=== PATIENT | male | born 1955 | race Caucasian/White ===

== ENCOUNTER 2017-08-11 11:18 | Inpatient (IN) | payer OTHER, MEDICAID ==
[~2017-08-11] VITALS: Ht 172.7 cm; Wt 71.0 kg
[2017-08-11 11:35] VITALS: BP 119/84
--- NOTE | 2017-08-11 11:43 | NUR ---
PT W/C ASSISTED TO BED 1.
--- NOTE | 2017-08-11 11:59 | NUR ---
DR MAHER IN ROOM FOR EXAM
--- NOTE | 2017-08-11 12:40 | NUR ---
PT LYING ON GURNEY NOTED WITH SHORTNESS OF BREATH USING ACESSSORY MUSCLES AT THIS TIME. HEAD TO TOE ASSESMENT DONE LUNG SOUNDS DIMINISHED BASE OF BILATERAL LUNGS DENIES CHEST PAIN. CAP REFILL POSITIVE SOME TENDERNESSS NOTED WITH PALPATION OF ABDOMEN. LAST BM YESTERDAY VOIDING WITHOUT ISSUE,TYSON 4+ PEDALPITTING EDEMA. PEDAL PULSES UNOBTAINABLE. PT IS ALERT AND ORIENTED. IV SITE OBTAINED PT ON 12 LEAD MONITOR WITH STEADY HEART RATE. 02 STATING AT 93%. LAB ORDERS RECIEVED AND CARRIED OUT. PER PT, WAS RECENTLY DISACHRGED FROM [facility] 2 DAYS AGO, DID NOT TAKE HIS LASIX YESTERADY, BUT HAS TAKEN TOTAL OF 80MG TODAY. URINATING WELL VIA URINAL, URINE SENT TO LAB FOR FURTHER STUDIES.
[2017-08-11 12:45] LABS: BASOPHILS # (AUTO) 0.2 K/uL (0.00-0.22); EOSINOPHILS # (AUTO) 0.3 K/uL (0-0.4); EOSINOPHILS % (AUTO) 3.1 % (0.0-4.0); HEMATOCRIT 44.8 % (36-52); HEMOGLOBIN 14.1 g/dL (12.0-18.0); LYMPHOCYTES # (AUTO) 1.8 K/uL (2.0-11.5); LYMPHOCYTES % (AUTO) 19.3 % (20.5-51.1); MEAN CORPUSCULAR HEMOGLOBIN 28 pg (27-31); MEAN CORPUSCULAR HGB CONC 32 g/dL (33-37); MEAN CORPUSCULAR VOLUME 90 fL (80-94); MONOCYTES # (AUTO) 0.6 K/uL (0.8-1.0); MONOCYTES % (AUTO) 6.2 % (1.7-9.3); NEUTROPHILS # (AUTO) 6.2 K/uL (1.8-7.7); NEUTROPHILS % (AUTO) 69.4 % (42.2-75.2); PLATELET COUNT (AUTO) 568 K/uL (140-450); RED BLOOD CELL COUNT(AUTO) 4.96 MIL/uL (4.20-6.10); RED CELL DISTRIBUTION WIDTH 20.1 % (11.6-13.7); WHITE BLOOD COUNT (AUTO) 9.1 K/uL (4.8-10.8)
[2017-08-11 12:54] LABS: APPEARANCE,URINE CLEAR (CLEAR); BILIRUBIN,URINE NEGATIVE (NEGATIVE); BLOOD, URINE NEGATIVE (NEGATIVE); COLOR,URINE YELLOW (YELLOW); LEUKOCYTE ESTERASE ,URINE NEGATIVE (NEGATIVE); NITRITE, URINE NEGATIVE (NEGATIVE); PH,URINE 6.5 (5.0-9.0); UGLUCOSE NEGATIVE (NEGATIVE)
[2017-08-11 12:56] LABS: BARBITURATE, URINE NEG. ng/ml (NEG <=200); BENZODIAZEPINE, URINE NEG. ng/mL (NEG <=200); CANNABINOID, URINE NEG. ng/mL (NEG <=50); COCAINE, URINE NEG. ng/mL (NEG <=300); OPIATE, URINE NEG. ng/mL (NEG <=2000); PHENCYCLIDINE SCREEN,URINE NEG. ng/mL (NEG <=25)
[2017-08-11 13:13] LABS: ANION GAP 12.1 (8-16); CARBON DIOXIDE 28.7 mmol/L (21-32); CREATININE 1.1 mg/dL (0.7-1.3); POTASSIUM 4.8 mmol/L (3.5-5.1); TOTAL BILIRUBIN 0.8 mg/dL (0.0-1.0)
--- NOTE | 2017-08-11 13:25 | NUR ---
TROPONIN 0.105, DR MAHER INFORMED
[2017-08-11] MEDS ORDERED: ONDANSETRON 4 MG/2 ML VIAL IVP PRN (13:30)
[2017-08-11] MEDS ORDERED: ACETAMINOPHEN 325 MG TAB PO PRN (13:30)
[2017-08-11] MEDS ORDERED: ALBUTEROL SULFATE/IPRATROPIU 3 ML SOL IH PRN (13:30)
[2017-08-11] MEDS ORDERED: NITROGLYCERIN 0.4 MG TAB SL PRN (13:35)
[2017-08-11 14:15] LABS: PROTHROMBIN TIME 13.4 secs (10.8-13.4)
[2017-08-11] MEDS ORDERED: ACET-2863 PO (14:21)
[2017-08-11] MEDS ORDERED: CARV3.12 PO (14:21)
[2017-08-11] MEDS ORDERED: FURO40TA9 PO (14:21)
[2017-08-11] MEDS ORDERED: SPIR25TA13 PO (14:21)
[2017-08-11] MEDS ORDERED: ASPI-1173 PO (14:21)
[2017-08-11] MEDS ORDERED: POTA10CE85 PO (14:22)
[2017-08-11 14:26] LABS: CHOL/HDL RATIO 3.5 (1-4.5); FREE T4 (FREE THYROXINE) 0.8 ng/dL (0.76-1.46); THYROID STIMULATING HORMONE 8.71 uIU/mL (0.34-3.74)
--- NOTE | 2017-08-11 14:27 | NUR ---
ORDERS FOR ADMISSION TO TELE RECEIVED, PT STABLE FOR TRANSFER. VSS.
[2017-08-11] MEDS ORDERED: LISINOPRIL 5 MG TAB PO SCH (14:30)
[2017-08-11] MEDS ORDERED: FUROSEMIDE 40 MG/4 ML VIAL IVP SCH (14:30)
[2017-08-11] MEDS ORDERED: METOPROLOL 25 MG TAB PO SCH ×2 (14:30→21:00)
--- NOTE | 2017-08-11 14:50 | NUR ---
Patient will be admitted to care of DR UREÑA. Admited to TELE Will go to room. Belongings list completed. Report to .
[2017-08-11] MEDS ORDERED: ASPIRIN 81 MG TAB.CHEW PO SCH (15:00)
--- NOTE | 2017-08-11 15:09 | NUR ---
RECEIVED REPORT AT BEDSIDE FROM THE ER NURSE. PT IS ABLE TO AMB TO RESTROOM, O2 SAT 89% ON ROOM AIR. O2 2L PLACE VIA NC, O2 SAT 95%. NO RESP DISTRESS NOTED, PT DENIES PAIN, NAUSEA, VOMITING. DX OF CHF EXACERBATION. IV NOTED TO R AC, PATENT AND INTACT, SL. SAFETY MEASURES IN PLACE, SIDE RAILS UP AND BED ALARM ON, BED ON LOWEST SETTING, SEMI-MORENO. CALL LIGHT WITHIN REACH, MRSA DONE. INITIAL ASSESSMENT DONE. WILL CONTINUE TO MONITOR PT.
[2017-08-11 15:30] VITALS: BP 119/90
--- NOTE | 2017-08-11 15:40 | NUR ---
DR. WALTERS IS HERE TO SEE THE PT. PT C/O PAIN IN CALF FOR HOMANS SIGN.
--- NOTE | 2017-08-11 15:50 | NUR ---
PT REFUSED LISINOPRIL, METOPROLOL, AND ASPIRIN, PT STATED HE HAS ALREADY TAKEN THOSE AT HOME FOR TODAY.
--- NOTE | 2017-08-11 17:20 | NUR ---
PT WAS TAKEN TO CAT SCAN HEAD.
[2017-08-11] MEDS ORDERED: MECLIZINE 25 MG TAB PO PRN (17:30)
--- NOTE | 2017-08-11 17:35 | NUR ---
PT IS BACK TO UNIT. Addendum: 08/11/17 at 2003 by Jorje Hutton RN CONNECTED PT TO O2 2L VIA NC
--- NOTE | 2017-08-11 19:30 | NUR ---
MEDICAL RECORD REQUEST SENT TO [facility].
--- NOTE | 2017-08-11 19:40 | NUR ---
ENDORSED PT TO JUNIOR SYSTEMS ANALYST RN, PT IN STABLE CONDITION.
--- NOTE | 2017-08-11 19:41 | NUR ---
RECEIVED PT FROM LETICIA BENZ PT IS AAOX4 AMBULATORY VOIDING WELL YELLOW URINE ON TELEMETRY SR BBB ON 02 2 LTS VIA NC NOT SOB NOTED AT THIS ;TIME INITIAL ASSESSMENT DONE
[2017-08-11] MEDS: ALBUTEROL SULFATE/IPRATROPIU 3 ML SOL IH SCH (19:42)
[2017-08-11 20:00] VITALS: BP 118/91
[2017-08-11] MEDS: SPIRONOLACTONE 25 MG TAB PO SCH (20:50)
[2017-08-11] MEDS: POTASSIUM CHLORIDE 10 MEQ TABER PO SCH (20:51)
[2017-08-11] MEDS: CARVEDILOL 3.125 MG TAB PO SCH (20:52)
--- NOTE | 2017-08-11 23:00 | NUR ---
RECEIVED REPORT FROM LU BENZ.PT IS IN STABLE CONDITION W/O S/S OF ANY SOB AND/OR PAIN.SL PATENT.WILL CONTINUE MONITORING.
[2017-08-12] VITALS: BP 120/80
[2017-08-12] MEDS: ZOLPIDEM 5 MG TAB PO PRN ×2 (01:10→20:20)
--- NOTE | 2017-08-12 01:20 | NUR ---
ASKED FOR SLEEPING PILL.INFORMED RESIDENT .HE ORDERED AMBIEN.1ST DOSE GIVEN.HR IS SR W/BBB .
[2017-08-12 04:00] VITALS: BP 115/78
--- NOTE | 2017-08-12 04:30 | NUR ---
VS STABLE.HR IS SR W/BBB.HE SLEPT WELL AFTER AMBIEN GIVEN TO HIM.NO C/O PAIN AND/OR SOB.
[2017-08-12 06:18] LABS: T3 UPTAKE 26 % (24-39)
--- NOTE | 2017-08-12 06:42 | NUR ---
CONDITION IS STABLE.STILL IS SLEEPING .NO RESP DISTRESS NOTED AT PRESENT TIME.CALL LIGHT WITHIN REACH.
[2017-08-12] MEDS: ALBUTEROL SULFATE/IPRATROPIU 3 ML SOL IH SCH ×3 (07:30→19:27)
--- NOTE | 2017-08-12 07:30 | NUR ---
RECEIVED REPORT FROM NIGHT CHARGE NURSE. PT IS AAOX4, ABLE TO AMB TO RESTROOM, ON O2 2L VIA NC. NO ACUTE RESP DISTRESS NOTED, PT DENIES PAIN, NAUSEA, VOMITING. IV NOTED TO R AC, PATENT AND INTACT, SL. SAFETY MEASURES AND FALL PRECAUTIONS IN PLACE, SIDE RAILS UP AND BED ALARM ON, BED ON LOWEST SETTING, SEMI-MORENO. CALL LIGHT WITHIN REACH. INITIAL ASSESSMENT DONE. WILL CONTINUE TO MONITOR.
[2017-08-12 07:32] LABS: MAGNESIUM 2.1 mg/dL (1.8-2.4); PHOSPHORUS 4.1 mg/dL (2.5-4.9)
[2017-08-12 07:33] LABS: ANION GAP 15.5 (8-16); CARBON DIOXIDE 28.9 mmol/L (21-32); CREATININE 1.2 mg/dL (0.7-1.3); POTASSIUM 5.4 mmol/L (3.5-5.1)
[2017-08-12 07:45] LABS: HEMATOCRIT 48.2 % (36-52); HEMOGLOBIN 15.1 g/dL (12.0-18.0); MEAN CORPUSCULAR HEMOGLOBIN 28 pg (27-31); MEAN CORPUSCULAR HGB CONC 31 g/dL (33-37); MEAN CORPUSCULAR VOLUME 90 fL (80-94); PLATELET COUNT (AUTO) 544 K/uL (140-450); RED BLOOD CELL COUNT(AUTO) 5.34 MIL/uL (4.20-6.10); RED CELL DISTRIBUTION WIDTH 19.6 % (11.6-13.7); WHITE BLOOD COUNT (AUTO) 10.5 K/uL (4.8-10.8)
[2017-08-12 08:00] VITALS: BP 129/100
--- NOTE | 2017-08-12 08:00 | NUR ---
PT'S HANDS AND FEET FEELS COLD. CAP REFILL IS LESS THAN 3 SEC. BODY FEELS WARM. NO S/S OF ACUTE DISTRESS. VITALS TAKEN.
[2017-08-12] MEDS ORDERED: ATORVASTATIN 20 MG TAB PO SCH (09:00)
[2017-08-12] MEDS: DOCUSATE 100 MG/10 ML UDC GT SCH (09:00)
[2017-08-12] MEDS ORDERED: LISINOPRIL 5 MG TAB PO SCH (09:00)
[2017-08-12] MEDS: LISINOPRIL 10 MG TAB PO SCH (09:05)
[2017-08-12] MEDS: POTASSIUM CHLORIDE 10 MEQ TABER PO SCH ×2 (09:06→20:21)
[2017-08-12] MEDS: CARVEDILOL 3.125 MG TAB PO SCH ×2 (09:06→20:21)
[2017-08-12] MEDS: SPIRONOLACTONE 25 MG TAB PO SCH ×2 (09:06→20:20)
[2017-08-12] MEDS: FUROSEMIDE 40 MG/4 ML VIAL IVP SCH (09:07)
[2017-08-12] MEDS: ASPIRIN 81 MG TAB.CHEW PO SCH (09:07)
--- NOTE | 2017-08-12 10:04 | NUR ---
PATIENT HAS BEEN SCREENED AND CATEGORIZED MODERATE NUTRITION RISK. PATIENT WILL BE SEEN WITHIN 3-5 DAYS OF ADMISSION. 08/13/17-08/15/[address]
[2017-08-12 10:35] LABS: LYMPHOCYTES % (MANUAL) 25 % (20-46); MONOCYTES % (MANUAL) 6 % (5-12)
--- NOTE | 2017-08-12 11:50 | NUR ---
PT REFUSED TO WEAR A GOWN AND BLANKET.
[2017-08-12 12:00] VITALS: BP 106/80
[2017-08-12] MEDS ORDERED: SODIUM POLYSTYRENE 15 GM/60 ML UDBTL PO SCH (12:00)
--- NOTE | 2017-08-12 13:10 | NUR ---
FAXED INITIAL REVIEW TO [facility] [phone] PHONE JUAN LUIS [phone] DIMA BENZ CASEMANAGER [id number] TO CALL [facility].
--- NOTE | 2017-08-12 13:30 | NUR ---
HELPED PT TO RESTROOM, PT HAD A BM, CROWN LIQUID STOOL. Addendum: 08/12/17 at 1612 by Jorje Hutton RN BROWN LIQUID STOOL. NEW GOWN HAS BEEN PUT ON.
--- NOTE | 2017-08-12 14:18 | NUR ---
1400 CALL PLACED TO [facility] AND SPOKE WITH CHARISSA IN INTAKE. WILL HAVE SOMEONE VISIT PT TODAY.
--- NOTE | 2017-08-12 14:40 | NUR ---
[facility] contacted these database report writer stating that hospice agency medical sales representative Paty and [facility] will be coming to meet patient and do assessment for services at about 3:30pm. These database report writer thank her for call, and information and ended call.
[2017-08-12 16:00] VITALS: BP 119/84
--- NOTE | 2017-08-12 18:30 | NUR ---
MEHNAZ FROM [facility] SAW PATIENT. WAITING FOR CARDIOLOGY TO SEE PATIENT.
--- NOTE | 2017-08-12 19:30 | NUR ---
ENDORSED PT TO POT WASHER RN, PT IN STABLE CONDITION.
[2017-08-12 19:33] LABS: ANION GAP 16.9 (8-16); CARBON DIOXIDE 27.4 mmol/L (21-32); CREATININE 1.1 mg/dL (0.7-1.3); POTASSIUM 4.3 mmol/L (3.5-5.1)
--- NOTE | 2017-08-12 19:35 | NUR ---
RECEIVED REPORT FROM AM NURSE. PT RESTING IN BED, AOX4, AMBULATES WITH STANDBY ASSIST, REPORTS GENERALIZED WEAKNESS. [employer] IN PLACE. PT DENIES CHEST PAIN, SOB OR S/S OF ACUTE DISTRESS. SPO2 97% ON O2 2L NC, RR 20 EVEN AND UNLABORED. BLE EDEMA NOTED. IV ACCESS ASYMPTOMATIC, PATENT AND INTACT, SALINE LOCKED. DISCUSSED AND REVIEWED PLAN OF CARE WITH PT. PT VERBALIZED UNDERSTANDING. ALL NEEDS MET. SAFETY MEASURES ENSURED. CALL LIGHT WITHIN REACH.
[2017-08-12 20:00] VITALS: BP 113/80
--- NOTE | 2017-08-12 20:25 | NUR ---
SPOKE WITH DR ORTIZ, DISCUSSED THAT K 5.4 IN THE AM, LATEST 4.3 AT THIS TIME AFTER KAYEXELATE IN AM. OK TO HAVE PT TAKE DUE MEDS SPIRONOLACTONE PO AND KDURR 10MEQ PO. PT C/O INSOMNIA, ADMINISTERED AMBIEN PO PRN WITH EDUCATION. ADMINISTERED REMAINING DUE MEDS WITH EDUCATION. PT VERBALIZED UNDERSTANDING, TOLERATED MEDS WELL. PT ABLE TO GO TO RESTROOM INDEPENDENTLY, REPORTS HAVING DIARRHEA 4X TODAY. ALL NEEDS MET. SAFETY MEASURES ENSURED. CALL LIGHT WITHIN REACH.
--- NOTE | 2017-08-12 23:30 | NUR ---
PT SLEEPING COMFORTABLY, AROUSABLE TO NAME, SPO2 98% ON O2 2L NC, RR 22 EVEN AND UNLABORED. ALL NEEDS MET. SAFETY MEASURES ENSURED. CALL LIGHT WITHIN REACH.
[2017-08-13] VITALS: BP 110/86
--- NOTE | 2017-08-13 03:35 | NUR ---
PT SLEEPING COMFORTABLY, AROUSABLE TO NAME, SPO2 99% ON ROOM AIR, RR 20 EVEN AND UNLABORED. ALL NEEDS MET. SAFETY MEASURES ENSURED. CALL LIGHT WITHIN REACH.
[2017-08-13 04:00] VITALS: BP 120/84
[2017-08-13 07:04] LABS: BASOPHILS # (AUTO) 0.3 K/uL (0.00-0.22); BASOPHILS % (AUTO) 3.6 % (0.0-2.0); EOSINOPHILS # (AUTO) 0.3 K/uL (0-0.4); HEMATOCRIT 43.6 % (36-52); LYMPHOCYTES # (AUTO) 1.7 K/uL (2.0-11.5); LYMPHOCYTES % (AUTO) 18.3 % (20.5-51.1); MEAN CORPUSCULAR HEMOGLOBIN 29 pg (27-31); MEAN CORPUSCULAR HGB CONC 32 g/dL (33-37); MEAN CORPUSCULAR VOLUME 90 fL (80-94); MONOCYTES # (AUTO) 0.8 K/uL (0.8-1.0); MONOCYTES % (AUTO) 8.6 % (1.7-9.3); NEUTROPHILS # (AUTO) 6.1 K/uL (1.8-7.7); NEUTROPHILS % (AUTO) 66.5 % (42.2-75.2); PLATELET COUNT (AUTO) 519 K/uL (140-450); RED BLOOD CELL COUNT(AUTO) 4.84 MIL/uL (4.20-6.10); RED CELL DISTRIBUTION WIDTH 19.8 % (11.6-13.7); WHITE BLOOD COUNT (AUTO) 9.2 K/uL (4.8-10.8)
[2017-08-13] MEDS: ALBUTEROL SULFATE/IPRATROPIU 3 ML SOL IH SCH ×2 (07:25→13:28)
--- NOTE | 2017-08-13 07:25 | NUR ---
ENDORSED PLAN OF CARE TO AM NURSE. CONDITION STABLE.
--- NOTE | 2017-08-13 07:30 | NUR ---
RECEIVED REPORT FROM PHOTOGRAPH PRINTER NURSE, PT IS RESTING IN BED IN HIGH FOWLERS POSITION, PT IS AAOX4, AMBULATES WITH ASSIST, PT HAS IV ON HIS RT AC, PATENT, INTACT, FLUSHING WELL, PT IS ON O2 2L NC, NO S/S OF RESPIRATORY DISTRESS OR DISCOMFORT NOTED, DISCUSSED PLAN OF CARE WITH PT, PT VERBALIZED UNDERSTANDING, SAFETY/FALL PRECAUTIONS ARE IN PLACE, CALL LIGHT WITHIN REACH, WILL CONTINUE TO MONITOR.
--- NOTE | 2017-08-13 07:32 | NUR ---
PATIENT RESPONDS WHEN SPOKEN TO. TOLERATING TX WELL. NO RESPIRATORY DISTRESS NOTED AT THIS TIME. PLACED PT ON 2L NC DUE TO O2 DESATURATION.
[2017-08-13 07:45] LABS: ANION GAP 14.4 (8-16); CARBON DIOXIDE 28.8 mmol/L (21-32); CREATININE 1.1 mg/dL (0.7-1.3); POTASSIUM 4.2 mmol/L (3.5-5.1)
[2017-08-13 08:00] VITALS: BP 130/97
[2017-08-13] MEDS: DOCUSATE 100 MG/10 ML UDC GT SCH (09:00)
[2017-08-13] MEDS: POTASSIUM CHLORIDE 10 MEQ TABER PO SCH (09:00)
[2017-08-13] MEDS: CARVEDILOL 3.125 MG TAB PO SCH (09:34)
[2017-08-13] MEDS: LISINOPRIL 10 MG TAB PO SCH (09:35)
[2017-08-13] MEDS: ASPIRIN 81 MG TAB.CHEW PO SCH (09:35)
[2017-08-13] MEDS: SPIRONOLACTONE 25 MG TAB PO SCH (09:35)
--- NOTE | 2017-08-13 09:35 | NUR ---
DUE MEDICATIONS GIVEN, PT TOLERATED WELL, CALL LIGHT IS WITHIN REACH.
[2017-08-13] MEDS: FUROSEMIDE 40 MG/4 ML VIAL IVP SCH (09:37)
--- NOTE | 2017-08-13 10:00 | NUR ---
I RECEIVED A PHONE CALL FROM ADRIANA AT [facility], SHE WAS CALLING TO ASK IF THE PATIENT WAS GOING TO BE DISCHARGED. I LET HER KNOW I HAD NO DISCHARGE ORDER AT THIS TIME BUT IF THERE WERE ANY CHANGES I WOULD CALL HER BACK. ADRIANA LEFT ME HER NUMBER [phone].
--- NOTE | 2017-08-13 10:33 | NUR ---
Social Service Note: Per Yamel from Admissions Dept at [facility] , hospice consent forms have been signed, waiting for discharge order, Yamel requested our nursing staff to contact [facility] once there is a discharge order, charge nurse Mackenzie made aware.
[2017-08-13] MEDS ORDERED: RIVAROXABAN 10 MG TAB PO SCH ×2 (11:00→17:00)
[2017-08-13] MEDS ORDERED: MECL-272 PO (11:53)
[2017-08-13] MEDS ORDERED: RIVA15TA1 PO (11:53)
[2017-08-13] MEDS ORDERED: LISI10TA11 PO (11:53)
[2017-08-13] MEDS ORDERED: RIVA20TA PO (11:53)
[2017-08-13 12:00] VITALS: BP 108/76
--- NOTE | 2017-08-13 12:48 | NUR ---
CALLED [facility] AT [phone] AND SPOKE TO PRAKASH. I LET HER KNOW THE PATIENT WAS GOING TO BE DISCHARGED TODAY. PRAKASH SAID SHE WOULD TAKE NOTE OF IT AND INFORM ADRIANA. I GAVE HER MY CALL BACK NUMBER IN CASE SHE HAD ANY QUESTIONS.
--- NOTE | 2017-08-13 13:00 | NUR ---
PT RESTING IN BED AT THIS TIME, ALL NEEDS ARE MET, CALL LIGHT WITHIN REACH.
--- NOTE | 2017-08-13 13:33 | NUR ---
PATIENT AWAKE AND ALERT. NO SOB OR RESPIRATORY DISTRESS NOTED.TOLERATING TX WELL AT THIS TIME.
--- NOTE | 2017-08-13 16:35 | NUR ---
DISCHARGE INSTRUCTIONS GIVEN, I INFORMED THE PATIENT A HOSPICE NURSE WOULD BE GOING OVER TO HIS HOUSE TOMORROW AT 9:00 AM, IV REMOVED, CATHETER TIP INTACT, ID WRIST BAND REMOVED. PT STABLE UPON DISCHARGE ACCOMPANIED BY HIS FRIEND, WILLY WHO WAS ALSO EDUCATED ON DISCHARGE INSTRUCTIONS.
[2017-08-14] MEDS ORDERED: RIVAROXABAN 10 MG TAB PO SCH (17:00)
== END 2017-08-13 16:35 | disposition hospice, home (50) | DRG 280 ==
LOC: MED 11:18 → MTU 13:35
PROVIDERS: ADMIT Family Medicine Sports Medicine; ATTEND Family Medicine Sports Medicine
DX: I21.A1 Myocardial infarction type 2 (principal); I50.43 Acute on chronic combined systolic (congestive) and diastolic (congestive) heart failure; N17.0 Acute kidney failure with tubular necrosis; J96.01 Acute respiratory failure with hypoxia; G93.41 Metabolic encephalopathy; E44.0 Moderate protein-calorie malnutrition; I42.0 Dilated cardiomyopathy; J44.9 Chronic obstructive pulmonary disease, unspecified; I73.00 Raynaud's syndrome without gangrene; E86.0 Dehydration; G90.9 Disorder of the autonomic nervous system, unspecified; K76.9 Liver disease, unspecified; F17.210 Nicotine dependence, cigarettes, uncomplicated; I11.0 Hypertensive heart disease with heart failure; E02 Subclinical iodine-deficiency hypothyroidism; Z68.23 Body mass index [BMI] 23.0-23.9, adult; Z91.19 Patient's noncompliance with other medical treatment and regimen
CPT/HCPCS: 36415; 70450; 71045; 76700; 80048; 80053; 80305; 81003; 82150; 83036; 83690; 83735; 83880; 84100; 84439; 84443; 84479; 84484; 85025; 85610; 85730; 87081; 93005; 93880; 93970; 94640; 97110; 97116; 97140; 97530; 99285; J1644; J1940; J7620; Q0092